=== PATIENT | female | born 1995 | race Caucasian/White ===

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

== ENCOUNTER 2018-02-06 03:40 | Emergency (ER) | payer SELFPAY ==
[~2018-02-06] VITALS: Ht 160 cm; Wt 79.5 kg
[~2018-02-06 03:40] MED LIST changes: +DOCU-131 PO; -DOCU-30 PO; +HYDR-3240 PO
[2018-02-06 04:59] LABS: BASOPHILS # (AUTO) 0.04 x10^3/uL (0-0.1); BASOPHILS % (AUTO) 0 % (0-1); EOSINOPHILS # (AUTO) 0.06 x10^3/uL (0-0.4); EOSINOPHILS % (AUTO) 1 % (1-7); LYMPHOCYTES # (AUTO) 1.19 x10^3/uL (1-3.4); LYMPHOCYTES % (AUTO) 13 % (22-44); MD NO; MEAN CORPUSCULAR HEMOGLOBIN 28.9 pg (27.0-34.8); MEAN CORPUSCULAR HGB CONC 33.9 g/dL (32.4-35.8); MEAN CORPUSCULAR VOLUME 85.3 fL (80-100); MEAN PLATELET VOLUME 9.6 fL (7.4-10.4); MONOCYTES # (AUTO) 0.86 x10^3/uL (0.2-0.8); MONOCYTES % (AUTO) 10 % (2-9); NEUTROPHILS # (AUTO) 6.89 x10^3/uL (1.8-6.8); NEUTROPHILS % (AUTO) 76 % (42-75); PLATELET COUNT 213 x10^3/uL (130-400); RED CELL DISTRIBUTION WIDTH 14.2 % (9.6-15.2)
[2018-02-06 05:00] LABS: CULTURE INDICATED? YES; MICROSCOPIC INDICATED
[2018-02-06 05:00] LABS: ALANINE AMINOTRANSFERASE 43 U/L (12-78); ALBUMIN 3.1 g/dL (3.4-5.0); ANION GAP 6 mmol/L (5-15); CALCIUM 8.9 mg/dL (8.5-10.1); CHLORIDE 107 mmol/L (98-107); CREATININE 0.53 mg/dL (0.55-1.02)
[2018-02-06 05:05] LABS: ALKALINE PHOSPHATASE 105 U/L (45-117); BILIRUBIN,TOTAL 2.2 mg/dL (0.2-1.0); TOTAL PROTEIN 7.6 g/dL (6.4-8.2)
[2018-02-06] MEDS ORDERED: ONDANSETRON 2MG/ML, 2ML ONE (05:17)
[2018-02-06] MEDS ORDERED: MORPHINE SULFATE 4 MG/ML, 1ML ONE ×2 (05:17→05:50)
[2018-02-06] MEDS: MORPHINE SULFATE 4 MG/ML, 1ML IVPush PRN ×2 (05:20→06:03)
[2018-02-06] MEDS ORDERED: ONDANSETRON 2MG/ML, 2ML IVPush ONE (05:30)
[2018-02-06] MEDS ORDERED: OMNIPAQUE 350 MG/ML, 100ML BOTTLE ONE (06:09)
[2018-02-06] MEDS ORDERED: KETOROLAC 60 MG/2 ML IVPush ONE (07:30)
[2018-02-06] MEDS ORDERED: KETOROLAC 30 MG/1 ML ONE (08:09)
[2018-02-06 08:51] VITALS: BP 98/62
== END 2018-02-06 08:53 | disposition home or self-care (01) ==
LOC: ED 05:35
DX: K80.20 Calculus of gallbladder without cholecystitis without obstruction (principal)
CPT/HCPCS: 36415; 74177; 76700; 80053; 81001; 83690; 84703; 85025; 87086; 96374; 96375; 96376; 99285; J1885; J2405; Q9967

== ENCOUNTER 2018-02-08 08:53 | Emergency (ER) | payer SELFPAY ==
[~2018-02-08] VITALS: Ht 160 cm; Wt 79.2 kg
[2018-02-08 09:58] LABS: BASOPHILS # (AUTO) 0.02 x10^3/uL (0-0.1); BASOPHILS % (AUTO) 0 % (0-1); EOSINOPHILS # (AUTO) 0.08 x10^3/uL (0-0.4); EOSINOPHILS % (AUTO) 1 % (1-7); LYMPHOCYTES # (AUTO) 1.41 x10^3/uL (1-3.4); LYMPHOCYTES % (AUTO) 20 % (22-44); MD NO; MEAN CORPUSCULAR HEMOGLOBIN 28.5 pg (27.0-34.8); MEAN CORPUSCULAR HGB CONC 33.7 g/dL (32.4-35.8); MEAN CORPUSCULAR VOLUME 84.4 fL (80-100); MEAN PLATELET VOLUME 9.1 fL (7.4-10.4); MONOCYTES # (AUTO) 0.46 x10^3/uL (0.2-0.8); MONOCYTES % (AUTO) 7 % (2-9); NEUTROPHILS # (AUTO) 4.96 x10^3/uL (1.8-6.8); NEUTROPHILS % (AUTO) 72 % (42-75); PLATELET COUNT 251 x10^3/uL (130-400); RED BLOOD COUNT 4.06 x10^6/uL (3.82-5.3); RED CELL DISTRIBUTION WIDTH 14.2 % (9.6-15.2)
[2018-02-08] MEDS ORDERED: morphine SULFATE 10 MG/ML, 1ML IVPush ONE (10:00)
[2018-02-08] MEDS ORDERED: ONDANSETRON 2MG/ML, 2ML IVPush ONE (10:00)
[2018-02-08 10:11] LABS: ALANINE AMINOTRANSFERASE 117 U/L (12-78); ANION GAP 7 mmol/L (5-15); CALCIUM 8.7 mg/dL (8.5-10.1); CHLORIDE 111 mmol/L (98-107); CREATININE 0.56 mg/dL (0.55-1.02)
[2018-02-08 10:13] LABS: ALKALINE PHOSPHATASE 168 U/L (45-117); BILIRUBIN,TOTAL 1.4 mg/dL (0.2-1.0); TOTAL PROTEIN 7.8 g/dL (6.4-8.2)
[2018-02-08] MEDS ORDERED: ONDANSETRON 2MG/ML, 2ML ONE (10:18)
[2018-02-08] MEDS ORDERED: MORPHINE SULFATE 4 MG/ML, 1ML ONE (10:19)
[2018-02-08 10:22] LABS: CULTURE INDICATED? YES; MICROSCOPIC INDICATED
[2018-02-08 12:30] VITALS: BP 98/56
== END 2018-02-08 13:30 | disposition home or self-care (01) ==
LOC: ED 10:10
DX: R10.11 Right upper quadrant pain (principal); R19.7 Diarrhea, unspecified; R94.5 Abnormal results of liver function studies
CPT/HCPCS: 36415; 71045; 76700; 80053; 80074; 81001; 83690; 85025; 87086; 96374; 96375; 99285; J2270; J2405